=== PATIENT | female | born 1985 | race Caucasian/White ===

== ENCOUNTER 2020-12-22 05:41 | Outpatient (CLI) | payer BC ==
[~2020-12-22] VITALS: Ht 163.5 cm; Wt 63.6 kg
[2020-12-22] MEDS ORDERED: MELO15TA39 PO (13:33)
[2020-12-22] MEDS ORDERED: BACL20TA PO (13:33)
== END 2020-12-22 13:46 | disposition home or self-care (01) ==
LOC: PREOP 05:41
PROVIDERS: ATTEND Obstetrics & Gynecology
DX: Z01.818 Encounter for other preprocedural examination (principal)

== ENCOUNTER 2020-12-29 06:00 | Day surgery (SDC) | payer BC ==
[~2020-12-29] VITALS: Ht 163.5 cm; Wt 63.6 kg
[2020-12-29] VITALS (11 sets, daily range): BP systolic 105–139; BP diastolic 70–86
[~2020-12-29 06:00] MED LIST: BACL20TA PO; MELO15TA39 PO
--- OUTSIDE RECORDS SUMMARY | 2020-12-29 06:03 | XMS REPORT ---
Author Author Spring Reid [facility] Address [address] [place] [id number] Care Team Providers Care Animal Groomer Name Role Phone Jimmie Reid PCP Dash Stein PreferredProvider Allergies and Adverse Reactions Name Reaction Notes PENICILLINS bleeding under the skin SULFA (SULFONAMIDES) hives Macrobid Plan of Treatment Planned Activity Comments Planned Date Planned Time Plan/Goal right foot pain appt on 12/22/2018 @ 100pm in [place] BEKA (Ankle Brachial Index). 10/23/2020 12:00 AM Medications Active Name Start Date Estimated Completion Date SIG Co mments Chloé Allergy 180 mg oral tablet take 1 tablet (180 mg) by oral route once daily Sprintec (28) 0.25 mg-35 mcg tablet take 1 tablet by oral route once daily ondansetron 4 mg disintegrating tablet 08/30/2020 dissolve 1 tablet by oral route every 8 hours as needed baclofen 20 mg tablet 12/06/2020 01/05/2021 TAKE 1 TAB LET BY MOUTH ONCE DAILY AT BEDTIME meloxicam 15 mg oral tablet 12/18/2020 01/17/2021 take 1 tablet (15 mg) by oral route once daily for 30 days Name Start Date Expiration Date SIG Comments azithromycin 250 mg oral tablet 05/27/2013 06/01/2013 take 2 tablets (500 mg) by oral route once daily for 1 day then 1 tablet (250 mg) by oral route once daily for 4 days Mobic 15 mg oral tablet 05/27/2013 06/03/2013 take 1 t ablet (15 mg) by oral route once daily for 7 days Mobic 15 mg oral tablet 09/23/2013 11/22/2013 take 1 t ablet (15 mg) by oral route once daily for 30 days azithromycin 250 mg oral tablet 12/13/2013 12/18/2013 take 2 tablets (500 mg) by oral route once daily for 1 day then 1 tablet (250 mg) by oral route once daily for 4 days Cipro 500 mg oral tablet 12/17/2013 12/24/2013 take 1 tablet (500 mg) by oral route 2 times per day for 7 days prednisone 20 mg oral tablet 12/17/2013 12/26/2013 3 t abs PO for 3 days, then 2 tabs PO for 3 days, then 1 tab PO for three days Dexilant 60 mg oral capsule,biphase delayed releas 02/17/2014 08/16/2014 take 1 capsule by oral route daily for 30 days cyclobenzaprine 10 mg oral tablet 05/10/2014 06/09/2014 take 1 tablet by oral route once a day (at bedtime) for 30 days Zanaflex 4 mg oral capsule 05/25/2014 08/23/2014 .5 to 1 tab every 8 hrs as needed tramadol 50 mg oral tablet 05/25/2014 06/24/2014 1 po every 8 hrs for tension and pain prn prednisone 20 mg oral tablet 11/27/2015 12/03/2015 Kam e 3 tabs x 2 days; then Take 2 tabs x 2 days; then Take 1 tab x 2 days. cyclobenzaprine 5 mg oral tablet 07/01/2016 take 1 tablet (5 mg) by oral route 3 times per day as needed for muscle spasm cyclobenzaprine 10 mg oral tablet 05/08/2017 take 1 tablet by oral route once a day (at bedtime) as needed for 30 days fluoxetine 10 mg oral capsule 05/29/2017 ta ke 1 capsule (10 mg) by oral route once daily citalopram 20 mg oral tablet 06/27/2017 take 0.5 tab let by oral route daily diclofenac sodium 75 mg oral tablet,delayed release (DR/EC) 06/27 take 1 tablet (75 mg) by oral route 2 times per day for 30 days alprazolam 0.25 mg oral tablet 12/01/2017 t ashlee 1 tablet (0.25 mg) by oral route every 4-6 hours as needed for anxiety doxycycline hyclate 100 mg oral capsule 06/16/2018 9 take 1 capsule (100 mg) by oral route every 12 hours for 10 days clindamycin HCl 300 mg oral capsule 07/06/2019 07/13/2019 take 1 capsule (300 mg) by oral route 2 times per day for 7 days Sudafed 12 Hour 120 mg oral tablet extended release 07/09/2019 take 1 tablet (120 mg) by oral route every 12 hours as needed prednisone 20 mg oral tablet 08/10/2019 08/13/2019 Take 2 tabs x 3 days; azithromycin 250 mg oral tablet 12/27/2019 01/01/2020 take 2 tablets (500 mg) by oral route once daily for 1 day then 1 tablet (250 mg) by oral route once daily for 4 days prednisone 20 mg oral tablet 02/18/2020 02/23/2020 kam e 2 tablets (40 mg) by oral route once daily for 5 days levofloxacin 500 mg oral tablet 02/25/2020 02/28/2020 take 1 tablet (500 mg) by oral route once daily for 3 days prednisone 20 mg oral tablet 07/14/2020 07/19/2020 Take 2 tabs x 5 days; diclofenac sodium 75 mg tablet,delayed release 09/05/2020 take 1 tablet (75 mg) by oral route 2 times per day for 30 days Discontinued Name Start Date Discontinued Date SIG Comments promethazine-codeine 6.25-10 mg/5 mL oral syrup 05/27/2013 07/12/2013 take 5 milliliters by oral route every 6 hours as needed, not to exceed 30 mL in 24 hours Quasense 0.15-30 mg-mcg oral tablets,dose pack,3 month 07/12/2013 05/25/2014 take 1 tablet by oral route once daily for 84 days Claritin-D 12 Hour 5-120 mg oral tablet extended release 12 hr 11/29/2015 05/08/2017 take 1 tablet by oral route 2 times a day as needed prednisone 20 mg oral tablet 04/01/2017 05/08/2017 Kam e 2 tabs x 2 days; then Take 1 tab x 2 days. diclofenac sodium 1 % topical gel 10/01/2019 09/05/2020 apply 2 grams to the affected area(s) by topical route 4 times per day Diflucan 150 mg oral tablet 01/31/2020 08/21/2020 take 1 tablet (150 mg) by oral route once Macrobid 100 mg oral capsule 02/16/2020 02/18/2020 kam e 1 capsule (100 mg) by oral route 2 times per day with food for 7 days amlodipine 5 mg tablet 09/07/2020 09/20/2020 take 1 ta blet (5 mg) by oral route once daily for 30 days Problem List Description Status Onset Back pain Active curvature of spine Active Myofascial pain Active 02/03/2015 TMJ (temporomandibular joint syndrome) Active Anxiety Active 06/01/2017 Vital Signs Date Time BP-Sys(mm[Hg] BP-Camille(mm[Hg]) HR(bpm) RR(rpm) Temp WT HT HC BMI BSA BMI Percentile O2 Sat(%) 12/11/2020 3:56:00 PM 128 mm[Hg] 68 mm[Hg] 86 {beats}/min 97.2 F 100 % 10/23/2020 9:02:00 AM 132 mm[Hg] 70 mm[Hg] 86 {beats}/min 97.2 F 100 % 09/20/2020 8:54:00 AM 132 mm[Hg] 76 mm[Hg] 96 {beats}/min 97.7 F 142 lbs 99 % 08/30/2020 3:31:00 PM 120 mm[Hg] 74 mm[Hg] 84 {beats}/min 18 rpm 98.4 F 142 lbs 64 in 24.37 kg/m2 1.71 m2 98 % 08/21/2020 3:25:00 PM 136 mm[Hg] 78 mm[Hg] 90 {beats}/min 18 rpm 98.8 F 140 lbs 64 in 24.0307 kg/m2 1.6934 m2 98 % 07/10/2020 9:57:00 AM 122 mm[Hg] 70 mm[Hg] 100 {beats}/min 16 rpm 99 F 145 lbs 64 in 24.89 kg/m2 1.72 m2 100 % 02/18/2020 10:55:00 AM 120 {beats}/min 20 rpm 99.3 F 99 % 10/01/2019 8:14:00 AM 122 mm[Hg] 80 mm[Hg] 93 {beats}/min 16 rpm 97.7 F 154 lbs 64 in 26.4338 kg/m2 1.776 m2 100 % 07/21/2019 7:41:00 PM 132 mm[Hg] 78 mm[Hg] 72 {beats}/min 17 rpm 98.7 F 156 lbs 64 in 26.78 kg/m2 1.79 m2 98 % 07/06/2019 10:14:00 AM 130 mm[Hg] 78 mm[Hg] 87 {beats}/min 17 rpm 98.6 F 159 lbs 64 in 27.292 kg/m2 1.8046 m2 100 % 11/11/2018 6:29:00 PM 134 mm[Hg] 86 mm[Hg] 93 {beats}/min 18 rpm 98.2 F 157.5 lbs 64 in 27.03 kg/m2 1.80 m2 100 % 06/16/2018 8:56:00 AM 130 mm[Hg] 90 mm[Hg] 98 {beats}/min 16 rpm 98.6 F 166 lbs 64 in 28.49 kg/m2 1.84 m2 100 % 06/27/2017 8:21:00 AM 128 mm[Hg] 72 mm[Hg] 76 {beats}/min 17 rpm 98.6 F 156.75 lbs 64 in 26.9058 kg/m2 1.7918 m2 98 % 05/29/2017 8:50:00 AM 134 mm[Hg] 78 mm[Hg] 118 {beats}/min 18 rpm 98.7 F 157.5 lbs 64 in 27.03 kg/m2 1.80 m2 98 % 04/01/2017 8:44:00 AM 140 mm[Hg] 80 mm[Hg] 92 {beats}/min 16 rpm 97.4 F 160 lbs 64 in 27.4637 kg/m2 1.8103 m2 100 % 02/11/2017 8:20:00 AM 130 mm[Hg] 70 mm[Hg] 91 {beats}/min 16 rpm 97.1 F 152 lbs 64 in 26.09 kg/m2 1.76 m2 100 % 01/08/2017 3:44:00 PM 124 mm[Hg] 76 mm[Hg] 88 {beats}/min 17 rpm 98.8 F 155.75 lbs 64 in 26.7342 kg/m2 1.7861 m2 97 % 07/01/2016 9:29:00 AM 124 mm[Hg] 80 mm[Hg] 93 {beats}/min 14 rpm 97.4 F 154 lbs 98 % 11/27/2015 5:32:00 PM 124 mm[Hg] 66 mm[Hg] 73 {beats}/min 18 rpm 96.9 F 150.375 lbs 64 in 25.81 kg/m2 1.75 m2 100 % 02/03/2015 9:33:00 AM 134 mm[Hg] 82 mm[Hg] 68 {beats}/min 20 rpm 98 F 150 lbs 64 in 25.7472 kg/m2 1.7528 m2 06/22/2014 2:17:00 PM 122 mm[Hg] 72 mm[Hg] 88 {beats}/min 18 rpm 97.9 F 146 lbs 06/03/2014 11:10:00 AM 122 mm[Hg] 70 mm[Hg] 88 {beats}/min 16 rpm 97.5 F 05/25/2014 2:08:00 PM 122 mm[Hg] 70 mm[Hg] 76 {beats}/min 16 rpm 98.1 F 147 lbs 64 in 25.2322 kg/m2 1.7352 m2 12/13/2013 10:06:00 AM 140 mm[Hg] 80 mm[Hg] 88 {beats}/min 22 rpm 97.4 F 143 lbs 64 in 24.55 kg/m2 1.71 m2 100 % 08/06/2013 8:37:00 AM 110 mm[Hg] 80 mm[Hg] 100 {beats}/min 16 rpm 97.9 F 139 lbs 64 in 23.8591 kg/m2 1.6873 m2 100 % 07/12/2013 3:33:00 PM 129 mm[Hg] 84 mm[Hg] 79 {beats}/min 98.2 F 13 8 lbs 64 in 23.69 kg/m2 1.68 m2 05/27/2013 6:34:00 PM 122 mm[Hg] 70 mm[Hg] 93 {beats}/min 16 rpm 96.1 F 141 lbs 64 in 24.2023 kg/m2 1.6994 m2 100 % 01/06/2013 3:47:00 PM 108 mm[Hg] 74 mm[Hg] 69 {beats}/min 18 rpm 97.4 F 143.4 lbs 64 in 24.61 kg/m2 1.71 m2 100 % 09/17/2011 1:56:00 PM 128 mm[Hg] 80 mm[Hg] 95 {beats}/min 98.8 F 132.125 lbs 64 in 22.679 kg/m2 1.6451 m2 Social History Name Description Comments Tobacco Current every day smoker 11/11/2018 - Alcohol Current some day History of Procedures Date Ordered Description Order Status 02/03/2015 12:00 AM INJ TRIGGER POINT 1/2 MUSCL Reviewed 04/12/2016 12:00 AM IMMUNOTHERAPY INJECTIONS Reviewed 04/19/2016 12:00 AM IMMUNOTHERAPY INJECTIONS Reviewed 04/26/2016 12:00 AM IMMUNOTHERAPY INJECTIONS Reviewed 05/10/2016 12:00 AM IMMUNOTHERAPY INJECTIONS Reviewed 05/10/2016 12:00 AM IMMUNOTHERAPY INJECTIONS Reviewed 05/27/2016 12:00 AM IMMUNOTHERAPY INJECTIONS Reviewed 05/31/2016 12:00 AM IMMUNOTHERAPY INJECTIONS Reviewed 06/07/2016 12:00 AM IMMUNOTHERAPY INJECTIONS Reviewed 09/17/2011 12:00 AM CYTOPATH C/V MANUAL Reviewed 09/17/2011 12:00 AM SPECIMEN HANDLING OFFICE-LAB Reviewed 09/17/2011 12:00 AM CHLAMYDIA CULTURE Reviewed 09/17/2011 12:00 AM N.GONORRHOEAE DNA AMP PROB Reviewed 07/12/2016 12:00 AM IMMUNOTHERAPY INJECTIONS Reviewed 05/03/2016 12:00 AM IMMUNOTHERAPY INJECTIONS Reviewed 06/14/2016 12:00 AM IMMUNOTHERAPY INJECTIONS Reviewed 07/19/2016 12:00 AM IMMUNOTHERAPY INJECTIONS Reviewed 05/25/2014 12:00 AM GENERAL HEALTH PANEL Reviewed 05/25/2014 12:00 AM X-RAY EXAM NECK SPINE 2-3 VW Reviewed 05/25/2014 12:00 AM X-RAY EXAM L-S SPINE 2/3 VWS Reviewed 07/26/2016 12:00 AM IMMUNOTHERAPY INJECTIONS Reviewed 07/05/2016 12:00 AM IMMUNOTHERAPY INJECTIONS Reviewed 08/02/2016 12:00 AM IMMUNOTHERAPY INJECTIONS Reviewed 08/09/2016 12:00 AM IMMUNOTHERAPY INJECTIONS Reviewed 08/16/2016 12:00 AM IMMUNOTHERAPY INJECTIONS Reviewed 08/23/2016 12:00 AM IMMUNOTHERAPY INJECTIONS Reviewed 08/30/2016 12:00 AM IMMUNOTHERAPY INJECTIONS Reviewed 09/13/2016 12:00 AM IMMUNOTHERAPY INJECTIONS Reviewed 09/20/2016 12:00 AM IMMUNOTHERAPY INJECTIONS Reviewed 10/04/2016 12:00 AM IMMUNOTHERAPY INJECTIONS Reviewed 09/06/2016 12:00 AM IMMUNOTHERAPY INJECTIONS Reviewed 09/27/2016 12:00 AM IMMUNOTHERAPY INJECTIONS Reviewed 10/11/2016 12:00 AM IMMUNOTHERAPY INJECTIONS Reviewed 10/25/2016 12:00 AM IMMUNOTHERAPY INJECTIONS Reviewed 11/01/2016 12:00 AM IMMUNOTHERAPY INJECTIONS Reviewed 10/18/2016 12:00 AM IMMUNOTHERAPY INJECTIONS Reviewed 11/22/2016 12:00 AM IMMUNOTHERAPY INJECTIONS Reviewed 11/25/2016 12:00 AM IMMUNOTHERAPY INJECTIONS Reviewed 11/29/2016 12:00 AM IMMUNOTHERAPY INJECTIONS Reviewed 12/06/2016 12:00 AM IMMUNOTHERAPY INJECTIONS Reviewed 12/13/2016 12:00 AM IMMUNOTHERAPY INJECTIONS Reviewed 12/27/2016 12:00 AM IMMUNOTHERAPY INJECTIONS Reviewed 11/15/2016 12:00 AM IMMUNOTHERAPY INJECTIONS Reviewed 12/20/2016 12:00 AM IMMUNOTHERAPY INJECTIONS Reviewed 01/03/2017 12:00 AM IMMUNOTHERAPY INJECTIONS Reviewed 01/08/2017 12:00 AM INJ TRIGGER POINT 1/2 MUSCL Reviewed 01/10/2017 12:00 AM IMMUNOTHERAPY INJECTIONS Reviewed 01/17/2017 12:00 AM IMMUNOTHERAPY INJECTIONS Reviewed 01/24/2017 12:00 AM IMMUNOTHERAPY INJECTIONS Reviewed 01/31/2017 12:00 AM IMMUNOTHERAPY INJECTIONS Reviewed 02/07/2017 12:00 AM IMMUNOTHERAPY INJECTIONS Reviewed 02/11/2017 12:00 AM COMPLETE CBC W/AUTO DIFF WBC Reviewed 02/11/2017 12:00 AM COMPREHEN METABOLIC PANEL Reviewed 02/11/2017 12:00 AM LIPID PANEL Reviewed 02/21/2017 12:00 AM IMMUNOTHERAPY INJECTIONS Reviewed 02/14/2017 12:00 AM IMMUNOTHERAPY INJECTIONS Reviewed 02/28/2017 12:00 AM IMMUNOTHERAPY INJECTIONS Reviewed 03/07/2017 12:00 AM IMMUNOTHERAPY INJECTIONS Reviewed 03/14/2017 12:00 AM IMMUNOTHERAPY INJECTIONS Reviewed 03/21/2017 12:00 AM IMMUNOTHERAPY INJECTIONS Reviewed 04/08/2017 12:00 AM X-RAY EXAM OF JAW 4/> VIEWS Reviewed 04/11/2017 12:00 AM IMMUNOTHERAPY INJECTIONS Reviewed 03/26/2017 12:00 AM IMMUNOTHERAPY INJECTIONS Reviewed 04/25/2017 12:00 AM IMMUNOTHERAPY INJECTIONS Reviewed 04/18/2017 12:00 AM IMMUNOTHERAPY INJECTIONS Reviewed 05/02/2017 12:00 AM IMMUNOTHERAPY INJECTIONS Reviewed 05/08/2017 12:00 AM IMMUNOTHERAPY INJECTIONS Reviewed 05/16/2017 12:00 AM IMMUNOTHERAPY INJECTIONS Reviewed 05/23/2017 12:00 AM IMMUNOTHERAPY INJECTIONS Reviewed 05/09/2017 12:00 AM IMMUNOTHERAPY INJECTIONS Reviewed 06/06/2017 12:00 AM IMMUNOTHERAPY INJECTIONS Reviewed 06/06/2017 12:00 AM IMMUNOTHERAPY INJECTIONS Reviewed 06/13/2017 12:00 AM IMMUNOTHERAPY INJECTIONS Reviewed 06/20/2017 12:00 AM IMMUNOTHERAPY INJECTIONS Reviewed 07/04/2017 12:00 AM IMMUNOTHERAPY INJECTIONS Reviewed 06/27/2017 12:00 AM IMMUNOTHERAPY INJECTIONS Reviewed 07/21/2017 12:00 AM IMMUNOTHERAPY INJECTIONS Reviewed 07/11/2017 12:00 AM IMMUNOTHERAPY INJECTIONS Reviewed 07/25/2017 12:00 AM IMMUNOTHERAPY INJECTIONS Reviewed 08/01/2017 12:00 AM IMMUNOTHERAPY INJECTIONS Reviewed 08/08/2017 12:00 AM IMMUNOTHERAPY INJECTIONS Reviewed 08/15/2017 12:00 AM IMMUNOTHERAPY INJECTIONS Reviewed 09/09/2017 12:00 AM IMMUNOTHERAPY INJECTIONS Reviewed 10/03/2017 12:00 AM IMMUNOTHERAPY INJECTIONS Reviewed 10/10/2017 12:00 AM IMMUNOTHERAPY INJECTIONS Reviewed 10/17/2017 12:00 AM IMMUNOTHERAPY INJECTIONS Reviewed 10/31/2017 12:00 AM IMMUNOTHERAPY INJECTIONS Reviewed 11/06/2017 12:00 AM IMMUNOTHERAPY INJECTIONS Reviewed 11/14/2017 12:00 AM IMMUNOTHERAPY INJECTIONS Reviewed 11/21/2017 12:00 AM IMMUNOTHERAPY INJECTIONS Reviewed 12/05/2017 12:00 AM IMMUNOTHERAPY INJECTIONS Reviewed 12/10/2017 12:00 AM IMMUNOTHERAPY INJECTIONS Reviewed 12/10/2017 12:00 AM IMMUNOTHERAPY INJECTIONS Reviewed 12/10/2017 12:00 AM IMMUNOTHERAPY INJECTIONS Reviewed 12/10/2017 12:00 AM IMMUNOTHERAPY INJECTIONS Reviewed 12/10/2017 12:00 AM IMMUNOTHERAPY INJECTIONS Reviewed 12/19/2017 12:00 AM IMMUNOTHERAPY INJECTIONS Reviewed 12/26/2017 12:00 AM IMMUNOTHERAPY INJECTIONS Reviewed 12/31/2017 12:00 AM IMMUNOTHERAPY INJECTIONS Reviewed 01/09/2018 12:00 AM IMMUNOTHERAPY INJECTIONS Reviewed 01/23/2018 12:00 AM IMMUNOTHERAPY INJECTIONS Reviewed 02/06/2018 12:00 AM IMMUNOTHERAPY INJECTIONS Reviewed 02/13/2018 12:00 AM IMMUNOTHERAPY INJECTIONS Reviewed 01/02/2018 12:00 AM IMMUNOTHERAPY INJECTIONS Reviewed 01/16/2018 12:00 AM IMMUNOTHERAPY INJECTIONS Reviewed 01/30/2018 12:00 AM IMMUNOTHERAPY INJECTIONS Reviewed 02/20/2018 12:00 AM IMMUNOTHERAPY INJECTIONS Reviewed 02/27/2018 12:00 AM IMMUNOTHERAPY INJECTIONS Reviewed 03/06/2018 12:00 AM IMMUNOTHERAPY INJECTIONS Reviewed 03/20/2018 12:00 AM IMMUNOTHERAPY INJECTIONS Reviewed 03/13/2018 12:00 AM IMMUNOTHERAPY INJECTIONS Reviewed 03/25/2018 12:00 AM IMMUNOTHERAPY INJECTIONS Reviewed 04/03/2018 12:00 AM IMMUNOTHERAPY INJECTIONS Reviewed 04/10/2018 12:00 AM IMMUNOTHERAPY INJECTIONS Reviewed 04/17/2018 12:00 AM IMMUNOTHERAPY INJECTIONS Reviewed 04/24/2018 12:00 AM IMMUNOTHERAPY INJECTIONS Reviewed 05/01/2018 12:00 AM IMMUNOTHERAPY INJECTIONS Reviewed 05/08/2018 12:00 AM IMMUNOTHERAPY INJECTIONS Reviewed 05/15/2018 12:00 AM IMMUNOTHERAPY INJECTIONS Reviewed 01/06/2013 12:00 AM IMMUNIZATION ADMIN Reviewed 01/06/2013 12:00 AM TDAP VACCINE 7 YRS/> IM Reviewed 05/29/2018 12:00 AM IMMUNOTHERAPY INJECTIONS Reviewed 05/22/2018 12:00 AM IMMUNOTHERAPY INJECTIONS Reviewed 06/12/2018 12:00 AM IMMUNOTHERAPY INJECTIONS Reviewed 06/22/2018 12:00 AM IMMUNOTHERAPY INJECTIONS Reviewed 06/05/2018 12:00 AM IMMUNOTHERAPY INJECTIONS Reviewed 06/16/2018 12:00 AM TDAP VACCINE 7 YRS/> IM Reviewed 07/03/2018 12:00 AM IMMUNOTHERAPY INJECTIONS Reviewed 07/10/2018 12:00 AM IMMUNOTHERAPY INJECTIONS Reviewed 07/17/2018 12:00 AM IMMUNOTHERAPY INJECTIONS Reviewed 07/31/2018 12:00 AM IMMUNOTHERAPY INJECTIONS Reviewed 08/07/2018 12:00 AM IMMUNOTHERAPY INJECTIONS Reviewed 08/13/2018 12:00 AM IMMUNOTHERAPY INJECTIONS Reviewed 08/14/2018 12:00 AM IMMUNOTHERAPY INJECTIONS Reviewed 08/21/2018 12:00 AM IMMUNOTHERAPY INJECTIONS Reviewed 08/28/2018 12:00 AM IMMUNOTHERAPY INJECTIONS Reviewed 09/04/2018 12:00 AM IMMUNOTHERAPY INJECTIONS Reviewed 09/11/2018 12:00 AM IMMUNOTHERAPY INJECTIONS Reviewed 09/25/2018 12:00 AM IMMUNOTHERAPY INJECTIONS Reviewed 09/18/2018 12:00 AM IMMUNOTHERAPY INJECTIONS Reviewed 10/02/2018 12:00 AM IMMUNOTHERAPY INJECTIONS Reviewed 10/23/2018 12:00 AM IMMUNOTHERAPY INJECTIONS Reviewed 10/16/2018 12:00 AM IMMUNOTHERAPY INJECTIONS Reviewed 10/30/2018 12:00 AM IMMUNOTHERAPY INJECTIONS Reviewed 11/06/2018 12:00 AM IMMUNOTHERAPY INJECTIONS Reviewed 11/11/2018 12:00 AM Podiatry Consult Reviewed 11/13/2018 12:00 AM IMMUNOTHERAPY INJECTIONS Reviewed 11/19/2018 12:00 AM IMMUNOTHERAPY INJECTIONS Reviewed 11/27/2018 12:00 AM IMMUNOTHERAPY INJECTIONS Reviewed 12/04/2018 12:00 AM IMMUNOTHERAPY INJECTIONS Reviewed 12/11/2018 12:00 AM IMMUNOTHERAPY INJECTIONS Reviewed 12/18/2018 12:00 AM IMMUNOTHERAPY INJECTIONS Reviewed 12/25/2018 12:00 AM IMMUNOTHERAPY INJECTIONS Reviewed 12/31/2018 12:00 AM IMMUNOTHERAPY INJECTIONS Reviewed 01/08/2019 12:00 AM IMMUNOTHERAPY INJECTIONS Reviewed 01/13/2019 12:00 AM IMMUNOTHERAPY INJECTIONS Reviewed 01/15/2019 12:00 AM IMMUNOTHERAPY INJECTIONS Reviewed 01/22/2019 12:00 AM IMMUNOTHERAPY INJECTIONS Reviewed 07/12/2013 12:00 AM CYTOPATH C/V MANUAL Reviewed 07/12/2013 12:00 AM SPECIMEN HANDLING OFFICE-LAB Reviewed 07/12/2013 12:00 AM ASSAY THYROID STIM HORMONE Reviewed 01/29/2019 12:00 AM IMMUNOTHERAPY INJECTIONS Reviewed 02/05/2019 12:00 AM IMMUNOTHERAPY INJECTIONS Reviewed 08/06/2013 12:00 AM THER/PROPH/DIAG INJ SC/IM Reviewed 08/06/2013 12:00 AM Decadron, Per 1 Mg [facility]# [address]-76 Re viewed 08/06/2013 12:00 AM Depo-Medrol, Per 80 Mg [facility]#7144-0851-66 Reviewed 03/12/2019 12:00 AM IMMUNOTHERAPY INJECTIONS Reviewed 03/26/2019 12:00 AM IMMUNOTHERAPY INJECTIONS Reviewed 02/26/2019 12:00 AM IMMUNOTHERAPY INJECTIONS Reviewed 09/15/2013 12:00 AM COMPLETE CBC AUTOMATED Reviewed 04/09/2019 12:00 AM IMMUNOTHERAPY INJECTIONS Reviewed 04/30/2019 12:00 AM IMMUNOTHERAPY INJECTIONS Reviewed 05/07/2019 12:00 AM IMMUNOTHERAPY INJECTIONS Reviewed 10/01/2019 12:00 AM RADEX FOOT COMPLETE MINIMUM 3 VIEWS Revi ewed 02/14/2020 12:00 AM URNLS DIP STICK/TABLET RGNT AUTO W/O TRANG ROSCOPY Reviewed 02/18/2020 12:00 AM COVID-19 Testing Returned 07/12/2020 12:00 AM COVID-19 Testing Returned 07/12/2020 5:06 PM URINALYSIS AUTO W/O SCOPE Reviewed 07/10/2020 12:00 AM COMPLETE CBC W/AUTO DIFF WBC Reviewed 07/10/2020 12:00 AM COMPREHEN METABOLIC PANEL Reviewed 07/10/2020 12:00 AM RBC SED RATE AUTOMATED Reviewed 07/10/2020 12:00 AM C-REACTIVE PROTEIN Reviewed 07/10/2020 12:00 AM ASSAY THYROID STIM HORMONE Reviewed 07/10/2020 12:00 AM ROUTINE VENIPUNCTURE Reviewed 08/21/2020 12:00 AM ECG MONIT/REPRT UP TO 48 HRS Reviewed 09/20/2020 12:00 AM RADEX SPINE LUMBOSACRAL 2/3 VIEWS Return ed 10/23/2020 12:00 AM MRI LUMBAR SPINE W/O DYE Returned 10/23/2020 12:00 AM LOWER EXTREMITY STUDY Returned 12/25/2020 12:00 AM INJ TRIGGER POINT 1/2 MUSCL Reviewed 12/13/2013 12:00 AM THER/PROPH/DIAG INJ SC/IM Reviewed 12/13/2013 12:00 AM Decadron 8 mg [facility]# [address]-75 Reviewe d 12/13/2013 12:00 AM Depo-Medrol 80 mg [facility]#[address]-60 Revi ewed 06/03/2014 12:00 AM INJ TRIGGER POINT 1/2 MUSCL Reviewed 06/22/2014 12:00 AM INJ TRIGGER POINT 1/2 MUSCL Reviewed Results Summary Date and Description Results 07/12/2013 4:04 PM TSH 1.40 uIU/mL 09/15/2013 12:24 PM WBC 9.1 RBC 4.81 HGB 14.70 g /dLHCT 42.60 %MCV 89.0 fLMCH 30.60 pgMCHC 34.50 g/dLRDW SD 42 RDW CV 13.10 %MPV 10.10 fLPLT 284 NRBC# 0.00 NRBC% 0.0 06/02/2014 11:15 AM TSH 1.080 uIU/mLGLUCOSE 87.0 mg/dLSODIUM 141.0 mmol/LPOTASSIUM 4.20 mmol/LCHLORIDE 106.0 mmol/LCO2 23.0 mmol/LBUN 8.0 mg/dLCREATININE 0.80 mg/dLSGOT/AST 14.0 IU/LSGPT/ALT 11.0 IU/LALK PHOS 45.0 IU/LTOTAL PROTEIN 7.60 g/dLALBUMIN 4.80 g/dLTOTAL BILI 0.50 mg/dLCALCIUM 10.10 mg/dLAGE 29 GFR NonAA 84 GFR AA 102 eGFR >60 mL/min/1.73 m2eGFR AA* >60 WBC 6.0 RBC 4.92 HGB 14.90 g/dLHCT 43.50 %MCV 88.0 fLMCH 30.30 pgMCHC 34.30 g/dLRDW SD 41 RDW CV 12.80 %MPV 10.0 fLPLT 257 NRBC# 0.00 NRBC% 0.0 02/11/2017 9:25 AM WBC 5.4 RBC 4.76 HGB 14.20 g /dLHCT 42.10 %MCV 88.0 fLMCH 29.80 pgMCHC 33.70 g/dLRDW SD 41 RDW CV 12.50 %MPV 9.80 fLPLT 318 NRBC# 0.00 NRBC% 0.0 %NEUT 57.90 %%LYMP 31.90 %%MONO 6.50 %%EOS 2.60 %%BASO 0.90 %#NEUT 3.14 #LYMP 1.73 #MONO 0.35 #EOS 0.14 #BASO 0.05 MANUAL DIFF NOT IND GLUCOSE 90.0 mg/dLSODIUM 142.0 mmol/LPOTASSIUM 4.40 mmol/LCHLORIDE 108.0 mmol/LCO2 27.0 mmol/LBUN 11.0 mg/dLCREATININE 0.80 mg/dLSGOT/AST 15.0 IU/LSGPT/ALT 12.0 IU/LALK PHOS 47.0 IU/LTOTAL PROTEIN 7.80 g/dLALBUMIN 4.70 g/dLTOTAL BILI 0.30 mg/dLCALCIUM 9.70 mg/dLAGE 31 GFR NonAA 83 GFR AA 101 eGFR >60 mL/min/1.73 m2eGFR AA* >60 TRIGLYCERIDES 103.0 mg/dLCHOLESTEROL 178.0 mg/dLHDL 42.0 mg/dLTOT CHOL/HDL 4.2 LDL (CALC) 115.0 mg/dL 02/15/2020 8:32 AM COLOR Light-Yellow CLARITY C lear SPEC GRAV 1.011 pH 5.5 PROTEIN Negative GLUCOSE Normal KETONE Negative BILIRUBIN Negative BLOOD Negative NITRITE Negative LEUK SCREEN 250 Micro Indicated? MICRO IND RBC/HPF 4- 10 WBC/HPF 21-50 BACTERIA/HPF 1+ SQUAMOUS EPI/LPF Few MUCOUS/LPF Few HYALINE CAST/LPF 1+ CULT SET UP? YES 07/10/2020 10:00 AM WBC 10.3 RBC 4.98 HGB 14.90 g/dLHCT 45.20 %MCV 91.0 fLMCH 29.90 pgMCHC 33.0 g/dLRDW SD 46 %RDW CV 13.70 %MPV 11.10 fLPLT 248 x10E3/uLNRBC# 0.00 NRBC% 0.0 %NEUT 85.1 %LYMP 8.5 %MONO 5.6 %EOS 0.2 %BASO 0.4 #NEUT 8.76 #LYMP 0.87 #MONO 0.58 #EOS 0.02 #BASO 0.04 MANUAL DIFF NOT IND TSH 0.65 GLUCOSE 94 SODIUM 141 POTASSIUM 4.3 CHLORIDE 106.0 mmol/LCO2 24 BUN 11.0 mg/dLCREATININE 0.60 mg/dLSGOT/AST 29 SGPT/ALT 19 ALK PHOS 48 TOTAL PROTEIN 8.3 ALBUMIN 4.8 TOTAL BILI 0.3 CALCIUM 10.40 mg/dLAGE 35 GFR NonAA 112 GFR AA 136 eGFR 112 mL/min/1.73meGFR AA* >60 mL/min/1.73mC REACTIVE PROTEIN 6.0 mg/LSEDRATE 2 07/10/2020 5:06 PM Urine-Color yellow Glucose U r-sCnc neg Bilirub Ur Ql neg Ketones Ur Ql Strip neg Sp Gr Ur Qn 1.015 Hgb Ur Ql Strip neg pH Ur-LsCnc 5.5 Prot Ur Ql Strip neg Urobilinogen Ur-mCnc 0.2 Nitrite Ur Ql Strip neg WBC # Ur neg History Of Immunizations Name Date Admin Mfg Name Mfg Code Trade Name Lot# Route Inj Vis Given Vis Pub CVX Tdap 01/06/2013 sanofi pasteur PMC ADACEL [id number] Intramuscular Ri ght Deltoid 01/06/2013 09/10/2012 999 Tdap 06/16/2018 [employer]oSmith[employer] SKB BOOSTRIX 42PT4 Intramuscular Left Deltoid 06/24/2018 05/05/2020 115 Tdap 06/16/2018 [employer]oSmith[employer] SKB BOOSTRIX 42PT4 Intramuscular Left Deltoid 06/24/2018 05/05/2020 115 Covid-19 11/11/2020 [employer] PFR Not Entered Not Entered Not Entered 12/06/2020 05/05/2020 208 Covid-19 12/02/2020 Not Entered NE Dctio COVID-19 Vac cine [id number] Not Entered Not Entered 12/11/2020 05/05/2020 208 History of Past Illness Name Date of Onset Comments Back pain curvature of spine Myofascial pain 02/03/2015 TMJ (temporomandibular joint syndrome) 06/01/2017 Anxiety 06/01/2017 Routine gynecological examination Sep 17 2011 1:57PM Pre-Employment Physical Jan 06 2013 3:51PM Upper Respiratory Infection May 27 2013 6:39PM Cough May 27 2013 6:39PM Routine gynecological examination Jul 12 2013 3:33PM Irregular Menses Jul 12 2013 3:33PM Hair Loss Jul 12 2013 3:33PM Urticaria, Allergic Aug 06 2013 8:38AM Menorrhagia Sep 15 2013 12:11PM Upper Respiratory Infection Dec 13 2013 10:08AM Fatigue May 25 2014 2:14PM Cervical pain May 25 2014 2:14PM Lumbar spine pain May 25 2014 2:14PM Headache May 25 2014 2:14PM Myofascial pain Jun 03 2014 12:10PM Myofascial pain Feb 18 2014 2:18PM Myofascial pain Feb 03 2015 9:35AM Eustachian tube dysfunction, bilateral Nov 27 2015 5:34PM Allergic reaction to inhaled dust Apr 12 2016 4:33PM Allergic reaction to inhaled dust Apr 19 2016 4:33PM Allergic reaction to inhaled dust Apr 26 2016 4:05PM Allergic reaction to inhaled dust May 10 2016 4:26PM Allergic reaction to inhaled dust May 10 2016 4:27PM Allergic reaction to inhaled dust May 27 2016 9:11AM Allergic reaction to inhaled dust May 31 2016 4:57PM Allergic reaction to inhaled dust Feb 3 2016 4:40PM Myofascial pain Feb 27 2016 9:29AM Allergic reaction to inhaled dust Jul 12 2016 4:16PM Allergic reaction to inhaled dust Jul 16 2016 11:10AM Allergic reaction to inhaled dust Jul 16 2017 11:32AM Allergic reaction to inhaled dust Jul 19 2016 4:14PM Allergic reaction to inhaled dust Jul 26 2016 4:16PM Allergic reaction to inhaled dust Aug 08 2016 3:51PM Allergic reaction to inhaled dust Aug 08 2016 4:15PM Allergic reaction to inhaled dust Aug 09 2016 4:30PM Allergic reaction to inhaled dust Aug 16 2016 4:17PM Allergic reaction to inhaled dust Aug 23 2016 4:30PM Allergic reaction to inhaled dust Aug 30 2016 4:43PM Allergic reaction to inhaled dust Sep 13 2016 4:21PM Allergic reaction to inhaled dust Sep 20 2016 4:12PM Allergic reaction to inhaled dust Oct 04 2016 4:17PM Allergic reaction to inhaled dust Oct 17 2016 2:42PM Allergic reaction to inhaled dust Oct 17 2016 2:59PM Allergic reaction to inhaled dust Oct 17 2016 3:10PM Allergic reaction to inhaled dust Oct 25 2016 4:13PM Allergic reaction to inhaled dust Nov 01 2016 4:23PM Allergic reaction to inhaled dust Nov 06 2016 11:44AM Allergic reaction to inhaled dust Nov 22 2016 4:15PM Allergic reaction to inhaled dust Nov 25 2016 1:57PM Allergic reaction to inhaled dust Dec 04 2016 11:47AM Allergic reaction to inhaled dust Dec 06 2016 4:18PM Allergic reaction to inhaled dust Dec 13 2016 4:24PM Allergic reaction to inhaled dust Dec 27 2016 4:19PM Allergic reaction to inhaled dust Jan 01 2017 2:55PM Allergic reaction to inhaled dust Jan 01 2017 3:08PM Allergic reaction to inhaled dust Jan 03 2017 8:13AM Myofascial pain Jan 08 2017 3:46PM Allergic reaction to inhaled dust Jan 10 2017 1:14PM Allergic reaction to inhaled dust Jan 17 2017 2:28PM Allergic reaction to inhaled dust Jan 24 2017 2:39PM Allergic rhinitis; due to pollen Jan 31 2017 3:01PM Allergic rhinitis due to other allergen Jan 31 2017 3:01PM Allergic rhinitis; due to pollen Feb 07 2017 1:53PM Allergic rhinitis due to other allergen Feb 07 2017 1:53PM Annual physical exam Feb 11 2017 8:22AM Allergic rhinitis; due to pollen Feb 21 2017 3:24PM Allergic rhinitis due to other allergen Feb 21 2017 3:24PM Allergic rhinitis; due to pollen Feb 26 2017 11:09AM Allergic rhinitis due to other allergen Feb 26 2017 11:09AM Allergic rhinitis; due to pollen Feb 28 2017 1:49PM Allergic rhinitis due to other allergen Feb 28 2017 1:49PM Allergic rhinitis; due to pollen Mar 07 2017 3:02PM Allergic rhinitis due to other allergen Mar 07 2017 3:02PM Allergic rhinitis; due to pollen Mar 14 2017 2:44PM Allergic rhinitis due to other allergen Mar 14 2017 2:44PM Allergic rhinitis; due to pollen Mar 21 2017 1:29PM Allergic rhinitis due to other allergen Mar 21 2017 1:29PM Jaw pain Apr 08 2017 12:55PM Allergic rhinitis; due to pollen Apr 11 2017 1:20PM Allergic rhinitis due to other allergen Apr 11 2017 1:20PM Jaw pain Apr 01 2017 8:46AM Allergic rhinitis; due to pollen Apr 23 2017 1:01PM Allergic rhinitis due to other allergen Apr 23 2017 1:01PM Allergic rhinitis; due to pollen Apr 25 2017 1:31PM Allergic rhinitis due to other allergen Apr 25 2017 1:31PM Allergic rhinitis; due to pollen Apr 25 2017 1:36PM Allergic rhinitis due to other allergen Apr 25 2017 1:36PM Allergic rhinitis; due to pollen May 02 2017 1:52PM Allergic rhinitis due to other allergen May 02 2017 1:52PM Allergic rhinitis; due to pollen May 08 2017 10:09AM Allergic rhinitis due to other allergen May 08 2017 10:09AM Allergic rhinitis; due to pollen May 16 2017 8:28AM Allergic rhinitis due to other allergen May 16 2017 8:28AM Allergic rhinitis; due to pollen May 23 2017 3:27PM Allergic rhinitis due to other allergen May 23 2017 3:27PM Allergic rhinitis; due to pollen May 29 2017 4:01PM Allergic rhinitis due to other allergen May 29 2017 4:01PM TMJ (temporomandibular joint syndrome) May 29 2017 8:51AM Anxiety May 29 2017 8:51AM Allergic rhinitis; due to pollen Jun 06 2017 1:18PM Allergic rhinitis due to other allergen Jun 06 2017 1:18PM Allergic rhinitis; due to pollen Jun 06 2017 1:21PM Allergic rhinitis due to other allergen Jun 06 2017 1:21PM Allergic rhinitis; due to pollen Jun 13 2017 1:25PM Allergic rhinitis due to other allergen Jun 13 2017 1:25PM Allergic rhinitis; due to pollen Jun 20 2017 1:27PM Allergic rhinitis due to other allergen Jun 20 2017 1:27PM TMJ (temporomandibular joint syndrome) Jun 27 2017 8:25AM Anxiety Jun 27 2017 8:25AM Allergic rhinitis; due to pollen Jul 04 2017 1:13PM Allergic rhinitis due to other allergen Jul 04 2017 1:13PM Allergic rhinitis; due to pollen Jul 14 2017 11:04AM Allergic rhinitis due to other allergen Jul 14 2017 11:04AM Allergic rhinitis; due to pollen Jul 21 2017 2:03PM Allergic rhinitis due to other allergen Jul 21 2017 2:03PM Allergic rhinitis; due to pollen Jul 21 2017 2:03PM Allergic rhinitis due to other allergen Jul 21 2017 2:03PM Allergic rhinitis; due to pollen Jul 25 2017 1:40PM Allergic rhinitis due to other allergen Jul 25 2017 1:40PM Allergic rhinitis; due to pollen Aug 01 2017 1:21PM Allergic rhinitis due to other allergen Aug 01 2017 1:21PM Allergic rhinitis; due to pollen Aug 08 2017 1:17PM Allergic rhinitis due to other allergen Aug 08 2017 1:17PM Allergic rhinitis; due to pollen Aug 15 2017 2:36PM Allergic rhinitis due to other allergen Aug 15 2017 2:36PM Allergic rhinitis; due to pollen Sep 09 2017 1:23PM Allergic rhinitis due to other allergen Sep 09 2017 1:23PM Allergic rhinitis; due to pollen Oct 03 2017 1:47PM Allergic rhinitis due to other allergen Oct 03 2017 1:47PM Allergic rhinitis; due to pollen Oct 10 2017 1:39PM Allergic rhinitis due to other allergen Oct 10 2017 1:39PM Allergic rhinitis; due to pollen Oct 17 2017 2:34PM Allergic rhinitis due to other allergen Oct 17 2017 2:34PM Allergic rhinitis; due to pollen Oct 31 2017 2:11PM Allergic rhinitis due to other allergen Oct 31 2017 2:11PM Allergic rhinitis; due to pollen Nov 06 2017 1:51PM Allergic rhinitis due to other allergen Nov 06 2017 1:51PM Allergic rhinitis; due to pollen Nov 14 2017 1:12PM Allergic rhinitis due to other allergen Nov 14 2017 1:12PM Allergic rhinitis; due to pollen Nov 21 2017 3:59PM Allergic rhinitis due to other allergen Nov 21 2017 3:59PM Encounter for desensitization to allergen Dec 05 2017 1:25P M Allergic rhinitis; due to pollen Dec 10 2017 1:04PM Allergic rhinitis due to other allergen Dec 10 2017 1:04PM Allergic rhinitis; due to pollen Dec 10 2017 1:07PM Allergic rhinitis due to other allergen Dec 10 2017 1:07PM Allergic rhinitis; due to pollen Dec 10 2017 1:08PM Allergic rhinitis due to other allergen Dec 10 2017 1:08PM Allergic rhinitis; due to pollen Dec 10 2017 2:39PM Allergic rhinitis due to other allergen Dec 10 2017 2:39PM Allergic rhinitis; due to pollen Dec 10 2017 3:15PM Allergic rhinitis due to other allergen Dec 10 2017 3:15PM Encounter for desensitization to allergen Dec 19 2017 1:54P M Encounter for desensitization to allergen Dec 26 2017 1:55P M Encounter for desensitization to allergen Dec 31 2017 3:19P M Encounter for desensitization to allergen Jan 09 2018 1:32P M Encounter for desensitization to allergen Jan 23 2018 1:19P M Allergic rhinitis; due to pollen Feb 06 2018 1:11PM Allergic rhinitis due to other allergen Feb 06 2018 1:11PM Allergic rhinitis; due to pollen Feb 13 2018 1:50PM Allergic rhinitis due to other allergen Feb 13 2018 1:50PM Encounter for desensitization to allergen Feb 19 2018 11:36A M Encounter for desensitization to allergen Feb 19 2018 12:05P M Allergic rhinitis; due to pollen Feb 19 2018 12:28PM Allergic rhinitis due to other allergen Feb 19 2018 12:28PM Allergic rhinitis; due to pollen Mar 17 2018 4:28PM Allergic rhinitis due to other allergen Mar 17 2018 4:28PM Allergic rhinitis; due to pollen Mar 18 2018 10:32AM Allergic rhinitis due to other allergen Mar 18 2018 10:32AM Allergic rhinitis; due to pollen Mar 18 2018 2:21PM Allergic rhinitis due to other allergen Mar 18 2018 2:21PM Allergic rhinitis; due to pollen Mar 20 2018 1:46PM Allergic rhinitis due to other allergen Mar 20 2018 1:46PM Allergic rhinitis; due to pollen Mar 20 2018 4:15PM Allergic rhinitis due to other allergen Mar 20 2018 4:15PM Allergic rhinitis; due to pollen Mar 25 2018 4:03PM Allergic rhinitis due to other allergen Mar 25 2018 4:03PM Allergic rhinitis; due to pollen Apr 03 2018 1:46PM Allergic rhinitis due to other allergen Apr 03 2018 1:46PM Allergic rhinitis; due to pollen Apr 10 2018 1:31PM Allergic rhinitis due to other allergen Apr 10 2018 1:31PM Allergic rhinitis; due to pollen Apr 24 2018 11:30AM Allergic rhinitis due to other allergen Apr 24 2018 11:30AM Allergic rhinitis; due to pollen 2018 10:23AM Allergic rhinitis due to other allergen 2018 10:23AM Allergic rhinitis; due to pollen May 01 2018 1:51PM Allergic rhinitis due to other allergen May 01 2018 1:51PM Allergic rhinitis; due to pollen May 08 2018 3:45PM Allergic rhinitis due to other allergen May 08 2018 3:45PM Allergic rhinitis; due to pollen May 15 2018 1:56PM Allergic rhinitis due to other allergen May 15 2018 1:56PM Allergic rhinitis; due to pollen May 29 2018 8:23AM Allergic rhinitis due to other allergen May 29 2018 8:23AM Allergic rhinitis; due to pollen Jun 02 2018 2:21PM Allergic rhinitis due to other allergen Jun 02 2018 2:21PM Allergic rhinitis; due to pollen Jun 12 2018 2:43PM Allergic rhinitis due to other allergen Jun 12 2018 2:43PM Allergic rhinitis; due to pollen Jun 22 2018 1:57PM Allergic rhinitis due to other allergen Jun 22 2018 1:57PM Allergic rhinitis; due to pollen Jun 22 2018 4:36PM Allergic rhinitis due to other allergen Jun 22 2018 4:36PM Need for Tdap vaccination Jun 16 2018 8:58AM Open bite of left hand, initial encounter Jun 16 2018 8:58A M Bitten by cat, initial encounter Jun 16 2018 8:58AM Open bite of right hand without foreign body, initial encounter Jun 16 2018 8:58AM Abrasion of unspecified hand, initial encounter Jun 16 2018 8:58AM Scratched by cat, initial encounter Jun 16 2018 8:58AM Allergic rhinitis; due to pollen Jul 03 2018 1:29PM Allergic rhinitis due to other allergen Jul 03 2018 1:29PM Encounter for desensitization to allergen Jul 03 2018 1:29P M Allergic rhinitis; due to pollen Jul 10 2018 1:12PM Allergic rhinitis due to other allergen Jul 10 2018 1:12PM Encounter for desensitization to allergen Jul 10 2018 1:12P M Allergic rhinitis; due to pollen Jul 21 2018 10:44AM Allergic rhinitis due to other allergen Jul 21 2018 10:44AM Encounter for desensitization to allergen Jul 21 2018 10:44A M Allergic rhinitis; due to pollen Jul 31 2018 1:19PM Allergic rhinitis due to other allergen Jul 31 2018 1:19PM Encounter for desensitization to allergen Jul 31 2018 1:19P M Allergic rhinitis; due to pollen Aug 07 2018 1:26PM Allergic rhinitis due to other allergen Aug 07 2018 1:26PM Encounter for desensitization to allergen Aug 07 2018 1:26P M Allergic rhinitis; due to pollen Aug 13 2018 1:58PM Allergic rhinitis due to other allergen Aug 13 2018 1:58PM Encounter for desensitization to allergen Aug 13 2018 1:58P M Allergic rhinitis; due to pollen Aug 14 2018 2:49PM Allergic rhinitis due to other allergen Aug 14 2018 2:49PM Encounter for desensitization to allergen Aug 14 2018 2:49P M Allergic rhinitis; due to pollen Aug 21 2018 1:30PM Allergic rhinitis due to other allergen Aug 21 2018 1:30PM Encounter for desensitization to allergen Aug 21 2018 1:30P M Allergic rhinitis; due to pollen Aug 28 2018 1:26PM Allergic rhinitis due to other allergen Aug 28 2018 1:26PM Encounter for desensitization to allergen Aug 28 2018 1:26P M Allergic rhinitis; due to pollen Sep 04 2018 1:07PM Allergic rhinitis due to other allergen Sep 04 2018 1:07PM Encounter for desensitization to allergen Sep 04 2018 1:07P M Allergic rhinitis; due to pollen Sep 11 2018 1:27PM Allergic rhinitis due to other allergen Sep 11 2018 1:27PM Encounter for desensitization to allergen Sep 11 2018 1:27P M Allergic rhinitis; due to pollen Sep 25 2018 1:28PM Allergic rhinitis due to other allergen Sep 25 2018 1:28PM Encounter for desensitization to allergen Sep 25 2018 1:28P M Allergic rhinitis; due to pollen Oct 22 2018 11:46AM Allergic rhinitis due to other allergen Oct 22 2018 11:46AM Encounter for desensitization to allergen Oct 22 2018 11:46A M Allergic rhinitis; due to pollen Oct 22 2018 2:01PM Allergic rhinitis due to other allergen Oct 22 2018 2:01PM Encounter for desensitization to allergen Oct 22 2018 2:01P M Allergic rhinitis; due to pollen Oct 23 2018 1:14PM Allergic rhinitis due to other allergen Oct 23 2018 1:14PM Encounter for desensitization to allergen Oct 23 2018 1:14P M Allergic rhinitis; due to pollen Oct 23 2018 4:38PM Allergic rhinitis due to other allergen Oct 23 2018 4:38PM Encounter for desensitization to allergen Oct 23 2018 4:38P M Allergic rhinitis; due to pollen Oct 30 2018 1:41PM Allergic rhinitis due to other allergen Oct 30 2018 1:41PM Encounter for desensitization to allergen Oct 30 2018 1:41P M Encounter for desensitization to allergen Nov 06 2018 1:54P M Right foot pain Nov 11 2018 6:31PM Encounter for desensitization to allergen Nov 13 2018 4:21P M Encounter for desensitization to allergen Dec 10 2018 12:12P M Encounter for desensitization to allergen Dec 10 2018 12:31P M Encounter for desensitization to allergen Dec 10 2018 12:47P M Encounter for desensitization to allergen Dec 11 2018 1:49P M Encounter for desensitization to allergen Dec 18 2018 3:45P M Allergic rhinitis; due to other allergen Dec 18 2018 3:45PM Encounter for desensitization to allergen Dec 25 2018 1:58P M Encounter for desensitization to allergen Dec 31 2018 1:55P M Encounter for desensitization to allergen Jan 08 2019 1:31P M Desensitization to allergy shot Jan 13 2019 8:56AM Allergic rhinitis; due to pollen Jan 13 2019 8:56AM Allergic rhinitis due to other allergen Jan 13 2019 8:56AM Encounter for desensitization to allergen Jan 13 2019 8:56A M Encounter for desensitization to allergen Jan 15 2019 1:16P M Encounter for desensitization to allergen Jan 22 2019 1:27P M Encounter for desensitization to allergen Feb 10 2019 11:44A M Encounter for desensitization to allergen Feb 10 2019 1:22P M Encounter for desensitization to allergen Mar 12 2019 1:20P M Allergic rhinitis; due to pollen Mar 26 2019 12:05PM Allergic rhinitis due to other allergen Mar 26 2019 12:05PM Encounter for desensitization to allergen Mar 26 2019 12:05P M Encounter for desensitization to allergen Mar 29 2019 3:27P M Allergic rhinitis; due to pollen Apr 09 2019 11:54AM Allergic rhinitis due to other allergen Apr 09 2019 11:54AM Encounter for desensitization to allergen Apr 09 2019 11:54A M Allergic rhinitis; due to pollen Apr 30 2019 1:55PM Allergic rhinitis due to other allergen Apr 30 2019 1:55PM Encounter for desensitization to allergen Apr 30 2019 1:55P M Allergic rhinitis; due to pollen May 07 2019 5:03PM Allergic rhinitis due to other allergen May 07 2019 5:03PM Encounter for desensitization to allergen May 07 2019 5:03P M Acute non-recurrent frontal sinusitis Jul 06 2019 10:22AM Hand, foot and mouth disease Jul 21 2019 7:42PM Allergic rhinitis Aug 10 2019 2:23PM Throat fullness Aug 10 2019 2:23PM Left foot pain Oct 01 2019 8:15AM Dysuria Jan 31 2020 2:17PM Foul smelling urine Feb 14 2020 1:01PM Rash Feb 18 2020 9:28AM Body aches Feb 18 2020 9:28AM Medication reaction Feb 18 2020 9:28AM Body aches Jul 10 2020 10:30AM Encounter for laboratory testing for COVID-19 virus Jul 12 9:04AM Cough Jul 12 2020 9:04AM Body aches Jul 10 2020 10:06AM Fatigue, unspecified type Jul 10 2020 10:06AM Palpitations Aug 21 2020 3:44PM Palpitations Aug 21 2020 3:28PM Syncopal episodes Aug 21 2020 3:28PM Acute midline low back pain, unspecified whether sciat ica present Aug 21 2020 3:28PM Palpitations Aug 30 2020 3:33PM Nausea Aug 30 2020 3:33PM Cervicalgia Sep 20 2020 8:59AM Mechanical low back pain Sep 20 2020 8:59AM Raynaud disease Sep 20 2020 8:59AM Cervicalgia Oct 23 2020 9:03AM Mechanical low back pain Oct 23 2020 9:03AM Pulses absent in 2 limbs Oct 23 2020 9:03AM Cervicalgia Dec 11 2020 3:57PM Mechanical low back pain Dec 11 2020 3:57PM Myalgia, other site Dec 11 2020 3:57PM Payers Insurance Name Company Name Plan Name Plan Number Policy Number Danny cy Group Number Start Date [employer] [place] [id number] esdJuly 05, 2014 [employer] [place] [id number] N/ A [facility] Occupational [facility] [id number] N/A [employer] [place] [id number] esd, July 05, 2014 History of Encounters Visit Date Visit Type Provider 12/11/2020 Office visit Jimmiemarko Pickarda DO 10/23/2020 Office visit Jimmiemarko Pickarda DO 09/20/2020 Office visit Jimmie Reid DO 08/30/2020 Office visit Dash Stein APR N 08/21/2020 Office visit Dash Stein APR N 07/12/2020 Office visit Sayda ARAYA RN 07/10/2020 Office visit Dash Stein APR N 02/18/2020 Voided Sayda ARAYA RN 02/18/2020 Office visit Sayda ARAYA RN 01/31/2020 Office visit Dash Stein APR N 10/01/2019 Office visit Dash Stein APR N 08/10/2019 Office visit Dash Stein APR N 07/21/2019 Office visit Elma Mae PERL PROGRAMMER 07/06/2019 Office visit Dash Stein APR N 05/07/2019 Nurse visit Sayda ARAYA RN 04/30/2019 Nurse visit Dash Stein APR N 04/09/2019 Nurse visit Dash Stein APR N 03/26/2019 Nurse visit Dash Stein APR N 03/12/2019 Nurse visit Dash Stein APR N 02/26/2019 Nurse visit Dash Stein APR N 02/12/2019 Voided Dash Stein APR N 02/05/2019 Nurse visit Dash Stein APR N 01/29/2019 Nurse visit Dash Stein APR N 01/22/2019 Nurse visit Dash Stein APR N 01/15/2019 Nurse visit Dash Stein APR N 01/08/2019 Nurse visit Dash Stein APR N 12/31/2018 Nurse visit Dash Stein APR N 12/25/2018 Nurse visit Dash Stein APR N 12/18/2018 Nurse visit Dash Stein APR N 12/11/2018 Nurse visit Dash Alonsoran APR N 12/04/2018 Nurse visit Dash Stein APR N 11/27/2018 Nurse visit Dash Stein APR N 11/19/2018 Nurse visit Dash Stien APR N 11/13/2018 Nurse visit Dash Alonsoran APR N 11/11/2018 Office visit Sayda ARAYA RN 11/06/2018 Nurse visit Dash Stein APR N 10/30/2018 Nurse visit Dash Alonsoran APR N 10/23/2018 Nurse visit Dash Stein APR N 10/16/2018 Nurse visit Dash Alonsoran APR N 10/08/2018 Nurse visit Sly Felipe PERL PROGRAMMER 10/02/2018 Nurse visit Dash Alonsoran APR N 09/25/2018 Nurse visit Dash Alonsoran APR N 09/18/2018 Nurse visit Dash Alonsoran APR N 09/11/2018 Nurse visit Dash Alonsoran APR N 09/04/2018 Nurse visit Heather Betancourt APR N 08/28/2018 Nurse visit Dash Alonsoran APR N 08/21/2018 Nurse visit Dash Alonsoran APR N 08/14/2018 Nurse visit Sayda ARAYA RN 08/07/2018 Nurse visit Dash Alonsoran APR N 07/31/2018 Nurse visit Dash Alonsoran APR N 07/24/2018 Nurse visit Dash Alonsoran APR N 07/17/2018 Nurse visit Dash Alonsoran APR N 07/10/2018 Nurse visit Dash Alonsoran APR N 07/03/2018 Nurse visit Heather Betancourt APR N 06/22/2018 Nurse visit Dash Alonsoran APR N 06/16/2018 Office visit Dash Alonsoran APR N 06/12/2018 Nurse visit Dash Alonsoran APR N 06/05/2018 Nurse visit Dash Alonsoran APR N 05/29/2018 Nurse visit Dash Alonsoran APR N 05/22/2018 Nurse visit Sayda ARAYA RN 05/15/2018 Nurse visit Dash Alonsoran APR N 05/08/2018 Nurse visit Dash Alonsoran APR N 05/01/2018 Nurse visit Dash Stein APR N 04/24/2018 Nurse visit Dash Alonsoran APR N 04/17/2018 Nurse visit Dash Alonsoran APR N 04/10/2018 Nurse visit Dash Alonsoran APR N 04/03/2018 Nurse visit Dash Alonsoran APR N 03/25/2018 Nurse visit Danish Murphy MD 03/20/2018 Nurse visit Dash Alonsoran APR N 03/13/2018 Nurse visit Dash Stein APR N 03/06/2018 Nurse visit Dash Alonsoran APR N 02/27/2018 Nurse visit Dash Stein APR N 02/20/2018 Nurse visit Dash Alonsoran APR N 02/13/2018 Nurse visit Dash Alonsoran APR N 02/06/2018 Nurse visit Danish Murphy MD 01/30/2018 Nurse visit Dash Alonsoran APR N 01/23/2018 Nurse visit Dash Alonsoran APR N 01/16/2018 Nurse visit Dash Stein APR N 01/09/2018 Nurse visit Dash Alonsoran APR N 01/02/2018 Nurse visit Dash Alonsoran APR N 12/26/2017 Nurse visit Dash Alonsoran APR N 12/19/2017 Nurse visit Dash Stein APR N 12/12/2017 Nurse visit Dash Stein APR N 12/05/2017 Nurse visit Dash Stein APR N 11/28/2017 Nurse visit Dash Stein APR N 11/21/2017 Nurse visit Martine Nael PERL PROGRAMMER 11/14/2017 Nurse visit Dash Stein APR N 11/06/2017 Nurse visit Dash Stein APR N 10/31/2017 Nurse visit Beatris Chino PRN 10/24/2017 Nurse visit Dash Stein APR N 10/17/2017 Nurse visit Dash Stein APR N 10/10/2017 Nurse visit Dash Stein APR N 10/03/2017 Nurse visit Dash Stein APR N 09/25/2017 Nurse visit Dash Stein APR N 09/17/2017 Nurse visit Dash Stein APR N 09/09/2017 Nurse visit Dash Stein APR N 09/02/2017 Nurse visit Dash Stein APR N 08/15/2017 Nurse visit Dash Stein APR N 08/08/2017 Nurse visit Dash Stein APR N 08/01/2017 Nurse visit Dash Stein APR N 07/25/2017 Nurse visit Dash Stein APR N 07/21/2017 Nurse visit Dash Stein APR N 07/11/2017 Nurse visit Dash Stein APR N 07/04/2017 Nurse visit Heather Betancourt APR N 06/27/2017 Nurse visit Dash Stein APR N 06/27/2017 Office visit Briseyda CASTILLO 06/20/2017 Nurse visit Dash Stein APR N 06/13/2017 Nurse visit Dash Stein APR N 06/06/2017 Nurse visit Dash Stein APR N 05/30/2017 Nurse visit Dash Stein APR N 05/29/2017 Office visit Briseyda Mookie Kehinde DICER OPERATOR 05/23/[address] Ayde Donahue er DO 05/16/2017 Nurse visit Dash Alonsoran APR N 05/09/2017 Nurse visit Dash Alonsoran APR N 05/02/[address] Ayde Donahue er DO 04/25/2017 Nurse visit Dash Alonsoran APR N 04/18/2017 Nurse visit Dash Alonsoran APR N 04/11/2017 Nurse visit Dash Alonsoran APR N 04/04/2017 Nurse visit Dash Alonsoran APR N 04/01/2017 Office visit Dash Alonsoran APR N 03/26/2017 Nurse visit Dash Alonsoran APR N 03/21/2017 Nurse visit Dash Alonsoran APR N 03/14/2017 Nurse visit Dash Alonsoran APR N 03/07/2017 Nurse visit Dash Alonsoran APR N 02/28/2017 Nurse visit Dash Alonsoran APR N 02/21/2017 Nurse visit Dash Alonsoran APR N 02/14/2017 Nurse visit Dash Alonsoran APR N 02/11/2017 Office visit Dash Alonsoran APR N 02/07/2017 Nurse visit Dash Alonsoran APR N 01/31/2017 Nurse visit Dash Alonsoran APR N 01/24/2017 Nurse visit Dash Alonsoran APR N 01/17/2017 Nurse visit Heather Betancourt APR N 01/10/2017 Nurse visit Dash Alonsoran APR N 01/08/2017 Office visit Briseyda Mookie Kehinde DICER OPERATOR 01/03/2017 Nurse visit Dash Alonsoran APR N 12/27/2016 Nurse visit Dash Alonsoran APR N 12/20/2016 Nurse visit Dash Alonsoran APR N 12/13/2016 Nurse visit Dash Alonsoran APR N 12/06/2016 Nurse visit Dash Alonsoran APR N 11/29/2016 Nurse visit Heather Fam Channing APR N 11/22/2016 Nurse visit Dash Alonsoran APR N 11/15/2016 Nurse visit Dash Alonsoran APR N 11/08/2016 Nurse visit Dash Alonsoran APR N 11/01/2016 Nurse visit Heather Fam Channing APR N 10/25/2016 Nurse visit Dash Alonsoran APR N 10/18/2016 Nurse visit Dash Alonsoran APR N 10/11/2016 Nurse visit Dash Alonsoran APR N 10/04/2016 Nurse visit Dash Alonsoran APR N 09/27/2016 Nurse visit Dash Alonsoran APR N 09/20/2016 Nurse visit Dash Stein APR N 09/13/2016 Nurse visit Dash Stein APR N 09/06/2016 Nurse visit Dash Stein APR N 08/30/2016 Nurse visit Dash Stein APR N 08/23/2016 Nurse visit Dash Stein APR N 08/16/2016 Nurse visit Dash Stein APR N 08/09/[address] Bird Mcclellan MD 08/02/2016 Nurse visit Dash Stein APR N 07/26/[address] Bird Mcclellan MD 07/19/2016 Nurse visit Dash Stein APR N 07/12/2016 Nurse visit Dash Stein APR N 07/05/2016 Nurse visit Dash Stein APR N 07/01/2016 Office visit Briseyda Busby DICER OPERATOR 06/14/2016 Nurse visit Dash Stein APR N 06/07/2016 Nurse visit Dash Stein APR N 05/31/2016 Nurse visit Dash Alonsoran APR N 05/24/2016 Nurse visit Dash Alonsoran APR N 05/10/2016 Nurse visit Dash Alonsoran APR N 05/03/2016 Nurse visit Dahs Stein APR N 04/26/[address] Bird Mcclellan MD 04/19/[address] Bird Mcclellan MD 04/12/2016 Nurse visit Dash Alonsoran APR N 11/27/2015 Office visit Dash Alonsoran APR N 02/03/2015 Office visit Briseyda Busby DICER OPERATOR 06/22/2014 Office visit Briseyda Busby DICER OPERATOR 05/25/2014 Office visit Briseyda Busby DICER OPERATOR 12/13/2013 Office visit Dash Stein APR N 08/06/2013 Office visit Dash Alonsoran APR N 07/12/2013 Office visit Florentin Moreland MD 05/27/2013 Office visit Dash Alonsoran APR N 01/06/2013 Office visit Kemi ARAYA RN 09/17/2011 Office visit Florentin Moreland MD
[2020-12-29] MEDS: LACTATED RINGERS 1,000 ML IV PRN ×2 (06:30→08:24)
[2020-12-29 06:49] LABS: BASOPHILS # (AUTO) 0.1 10^3/uL (0.0-0.1); BASOPHILS % (AUTO) 1 % (0-10); EOSINOPHILS # (AUTO) 0.2 10^3/uL (0.0-0.3); EOSINOPHILS % (AUTO) 3 % (0-10); HEMATOCRIT 40 % (35-52); HEMOGLOBIN 13.5 g/dL (11.5-16.0); LYMPHOCYTES # (AUTO) 1.8 10^3/uL (1.0-4.0); LYMPHOCYTES % (AUTO) 32 % (12-44); MEAN CORPUSCULAR HEMOGLOBIN 30 pg (25-34); MEAN CORPUSCULAR HGB CONC 34 g/dL (32-36); MEAN CORPUSCULAR VOLUME 90 fL (80-99); MEAN PLATELET VOLUME 10.4 fL (9.0-12.2); MONOCYTES # (AUTO) 0.5 10^3/uL (0.0-1.0); MONOCYTES % (AUTO) 9 % (0-12); NEUTROPHILS # (AUTO) 3.2 10^3/uL (1.8-7.8); NEUTROPHILS % (AUTO) 56 % (42-75); PLATELET COUNT 273 10^3/uL (130-400); WHITE BLOOD COUNT 5.8 10^3/uL (4.3-11.0)
[2020-12-29] MEDS ORDERED: ONDANSETRON 4 MG/2 ML (SDV) Z0FRAN IVP PRN ×2 (07:00→08:00)
[2020-12-29] MEDS ORDERED: HYDROmorphone 2 MG/ML VIAL (DILAUDID) IV ONE (07:00)
[2020-12-29] MEDS ORDERED: morphine INJ 10 MG/ML 1ML (SYR OR VIAL) IVP ONE (07:00)
[2020-12-29] MEDS ORDERED: proPOfol 200 MG/20 ML (DIPRIVAN) VIAL IV ONE (07:04)
[2020-12-29] MEDS ORDERED: GLYCOPYRROLATE 0.2 MG/ML (ROBINUL) 2 ML VIAL ONE (07:04)
[2020-12-29] MEDS ORDERED: NEOSTIGMINE 3 MG/3 ML VIAL ONE (07:04)
[2020-12-29] MEDS ORDERED: MIDAZOLAM 2 MG/2 ML (VERSED) VIAL ONE (07:04)
[2020-12-29] MEDS ORDERED: ROCURONIUM 10 MG/ML 5 ML SYRINGE IV ONE (07:04)
[2020-12-29] MEDS ORDERED: ONDANSETRON 4 MG/2 ML (SDV) Z0FRAN ONE (07:04)
[2020-12-29] MEDS ORDERED: fentaNYL INJ 100 MCG/2 ML AMP ONE (07:04)
[2020-12-29] MEDS ORDERED: LIDOCAINE PF 2% 5 ML (XYLOCAINE) VIAL ONE (07:04)
[2020-12-29] MEDS ORDERED: LIDOCAINE/EPI 1%-1:200,000 (XYLOCAINE) 30 ML VIAL ONE (07:21)
--- NOTE | 2020-12-29 07:58 | Progress Note-Pre Operative ---
Pre-Operative Progress Note H&P Reviewed The H&P was reviewed, patient examined and no changes noted. Date Seen by Provider: Dec 29, 2020 Time Seen by Provider: 07:58 Date H&P Reviewed: Dec 29, 2020 Time H&P Reviewed: 07:58 Pre-Operative Diagnosis: Chronic pelvic pain/dysmenorrhea/menorrhagia/intrauterine mass MELANIE BELTRAN MD Dec 29, 2020 07:58
--- NOTE | 2020-12-29 07:59 | Progress Note-Post Operative ---
Post-Operative Progess Note Surgeon (s)/Lock Up Worker (s) Surgeon MELANIE BELTRAN MD Lock Up Worker: Ninfa Weiss Pre-Operative Diagnosis Chronic pelvic pain/dysmenorrhea/menorrhagia/intrauterine mass Post-Operative Diagnosis Same with pathology pending Procedure & Operative Findings Date of Procedure 12/29/20 Procedure Performed/Findings Hysteroscopy with directed biopsy and D&C and with global endometrial Ablation using rollerball LaparoscopyWith destruction of endometriosis implantsWithAppendectomy Anesthesia Type GETA Estimated Blood Loss Estimated blood loss (mL): Minimal Specimens/Packing Specimens Removed Endometrial curettings, Peritoneal biopsy from the right ovarian fossa, appendix MELANIE BELTRAN MD Dec 29, 2020 07:59
[2020-12-29] MEDS ORDERED: fentaNYL INJ 100 MCG/2 ML AMP IVP PRN (08:00)
[2020-12-29] MEDS ORDERED: KETOROLAC 30 MG/ML VIAL IVP ONE (08:00)
[2020-12-29] MEDS ORDERED: oxyCODONE/APAP 5/325MG (PERCOCET 5) TABLET PO PRN (08:00)
[2020-12-29] MEDS ORDERED: D5 LR IV SOLUTION 1,000 ML IV SCH (08:00)
[2020-12-29] MEDS ORDERED: OXYC1TAB87 PO (08:02)
--- NOTE | 2020-12-29 08:03 | Discharge Inst-Surgical ---
Discharge Inst-Surgical Depart Medication/Instructions New, Converted or Re-Newed RX: Transmitted to Pharmacy Consults/Follow Up Patient Instructions: As directed Orders & Referrals Follow Up Appt: Call to make follow up appt. for patient in 1 week For suture removal. Activity: Rest for 24 hours, than as tolerated. Wound Care: May remove Band-Aid tomorrow. Replace as desired. Keep incisions clean and dry. Wash daily with soap and water. Diet: As tolerated- may shower or tub bathe as desired. No driving for 24 hours, no alcoholic beverages for 24 hours, and nothing per vagina (no tampons, douching, or intercourse) for 2 weeks. Patient to return to the clinic as soon as possible for: Temperature greater than 101F, Severe Pain, Foul discharge from incision or vagina, Excessive Bleeding (more than a period). Activity Activity as Tolerated: No Diet Discharge Diet: No Restrictions MELANIE BELTRAN MD Dec 29, 2020 08:03
[2020-12-29] MEDS ORDERED: SEVOFLURANE (ULTANE) 15 ML INHAL SOLN ONE (09:28)
[2020-12-29] MEDS ORDERED: morphine INJ 10 MG/ML 1ML (SYR OR VIAL) ONE (10:05)
[2020-12-29] MEDS ORDERED: KETOROLAC 30 MG/ML VIAL ONE (10:06)
--- NOTE | 2020-12-29 14:47 | OPERATIVE REPORT ---
DATE OF SERVICE: 12/29/2020 PREOPERATIVE DIAGNOSES: Menorrhagia, dysmenorrhea, chronic pelvic pain and intrauterine mass. POSTOPERATIVE DIAGNOSES: Menorrhagia, dysmenorrhea, chronic pelvic pain and intrauterine mass with likely endometrial polyps as well as endometriosis. OPERATIVE PROCEDURES: Hysteroscopy with directed biopsy and D and C, followed by global endometrial ablation using the rollerball and then laparoscopy for destruction of endometriosis implants and laparoscopic appendectomy. OPERATIVE DESCRIPTION: With the patient in the supine position under satisfactory general anesthesia, she was repositioned in a dorsal lithotomy position in the [facility] and prepped and draped in the usual fashion for vaginal surgery. Weighted speculum placed in posterior fornix of vagina, cervix exposed and grasped anteriorly with a single tooth tenaculum. Uterus was sounded to 9 cm with uterine sound. The cervix was then serially dilated to a #20 Alfonso dilator and then a #19 Hegar dilator was the final step in dilation. Hysteroscope was introduced. The endometrial cavity was examined. There were numerous polypoid masses emanating from the ashley of the uterus. [facility] biopsies were taken and then the hysteroscope was removed. The endometrial cavity was sharply curettaged with removal of a fairly moderate amount of tissue and some blood clot and debris. The endometrial cavity was then reinspected this time with a resectoscope and with the bulk of the tissue removed and no significant bleeding. The endometrial cavity was ablated using rollerball cautery with the power set at 50 miller. The anterior surface of the uterus was treated first with the rollerball taking care to proceed to the tuberosity as near as possible and then the posterior wall was treated in the same manner bringing the area of destruction down to the internal cervical os. Good thermal effect was noted. There was no significant bleeding on completion of the procedure. There was no remaining abnormal pathology. A uterine manipulator was placed and the bulb was filled with 4 mL of air and then the tenaculum and speculum were removed and the patient was brought in a low dorsal lithotomy position. The bladder had been drained prior to initiating the hysteroscopy. It was drained again now to ensure that the bladder was out of the way for the laparoscopy. The abdomen was exposed. A 5 mm incision made in left upper quadrant, a 12 mm incision in the inferior margin of the umbilicus and a 5 mm incision above the symphysis pubis. All incision sites were infiltrated with 1% lidocaine with epinephrine prior to incision. Veress needle was placed in the left upper quadrant incision. Correct placement confirmed with the water drop test and the abdomen insufflated with 2.4 liters of carbon dioxide. The Veress needle was removed and a 5 mm Optiview laparoscopic port was placed under direct vision. The abdominal wall was transilluminated and ports of 12 mm and 5 mm were placed in the umbilical port and the suprapubic port respectively. The patient was placed in a Trendelenburg allowing the bowel to spill out of the pelvis. The pelvis was examined. The patient had evidence of remote tubal sterilization. There were obvious endometriosis implants in the right ovarian fossae and in the cul-de-sac. There was some mottling of the uterus. Both ovaries appeared normal with several small follicles. The fallopian tubes were somewhat tortuous. Laparoscope was rotated. The appendix was seen. It was densely involved in adhesions and had several spots consistent with endometriosis versus scar tissue versus chronic infection. Decision was made to go ahead with appendectomy concurrent with the procedure. Laparoscope was brought back to the pelvis. Using cautery, the large implant in the right ovarian fossa was grasped and elevated and excised and sent to pathology for permanent section. The defect was treated with the cautery to effect hemostasis. There were additional smaller implants around this area that we touched with electrocautery to destroy them. The ovarian fossae on the right was examined fully. There were two more small implants, closer to the IP ligament that were touched with cautery and destroyed as well. There were no obvious implants in the left ovarian fossa. There was a large implant in the cul-de-sac that was touched with electrocautery to destroy that as well. The pelvic organs were examined, again no further endometriosis or abnormal pathology was noted. Attention was now turned to the appendix. It was grasped and elevated. The adhesions were taken free to allow for mobility of the appendix and then the mesoappendix was divided with cautery stepwise across to the base of the appendix and a couple of places. The Kleppinger was used to effect hemostasis. With the appendix skeletonized on to the space, the Endo-FLORENTINO was placed across the base of the appendix and fired. The appendix was placed in an Endobag and brought out through the umbilical port. The stump of the appendix was copiously irrigated and then several drops of Betadine were applied to the stump of the appendix. The pelvis was examined a final time and it had been irrigated. There was no bleeding. There was no remaining pathology. At this point, the procedure was terminated. The operative instruments were removed as were the operative ports. The abdomen was evacuated of insufflating gas in the process of removing the ports. Skin incisions were closed with nylon sutures. The fascia at the umbilical incision was closed with [id number] suture of 2-0 Vicryl. The speculum was replaced in the vagina after removing the uterine manipulator. There was no bleeding from the cervical os and no bleeding from the puncture sites from the tenaculum. Sponge and needle counts were correct. Blood loss was minimal. The patient tolerated the procedure well and was uneventfully awakened from her general anesthesia and transferred to the recovery room in stable condition with plans for discharge home PAR. Job ID: [id number] DocumentID: [id number] Dictated Date: 12/29/2020 09:35:28 Personal Care Aid Date: 12/29/2020 14:46:40 Dictated By: MELANIE BELTRAN MD
--- NOTE | 2021-01-05 09:03 | Anesthesia-General Post-Op ---
General Patient Condition Mental Status/LOC: Same as Preop Cardiovascular: Satisfactory Nausea/Vomiting: Absent Respiratory: Satisfactory Pain: Controlled Complications: Absent Post Op Complications Complications None Follow Up Care/Instructions Patient Instructions None needed. Anesthesia/Patient Condition Patient Condition Post-dated progress note: Patient was seen on 12-29 at approximately 1100 and she was doing well, no complaints, stable vital signs, no apparent adverse anesthesia problems. JOSUE WILL DO Jan 05, 2021 09:03
== END 2020-12-29 12:55 ==
LOC: SDC 06:00
PROVIDERS: ATTEND Obstetrics & Gynecology
DX: N92.0 Excessive and frequent menstruation with regular cycle (principal); N80.3 Endometriosis of pelvic peritoneum; N94.6 Dysmenorrhea, unspecified; F17.210 Nicotine dependence, cigarettes, uncomplicated; Z79.899 Other long term (current) drug therapy
CPT/HCPCS: 36415; 84703; 85025; 86850; 86900; 86901; 87081; 88302; 88305; 88342